=== PATIENT | female | born 2000 | race Caucasian/White ===

== ENCOUNTER 2020-05-17 10:10 | Outpatient (REF) | payer BC, SELFPAY ==
--- NOTE | 2020-05-17 09:30 | PAPFT_PTH ---
PATIENT: FREDDY CHOW LOC: [facility] U#:[id number] AGE/SX: 20/F ROOM: RE05/17/[address]: Thalia Obrien NP : 2000 BED: DIS: 05/17/2020 SPEC #: [id number] RECD: 05/17/20 12:46 STATUS: SHAUNA REQ #: [id number] LOLY: 05/17/20 09:[address]: Thalia Obrien NP DEPT: [facility] Cytology RECD BY: Aurora Gamez ENTERED: 05/17/20 12:46 SP TYPE: PAPFT OTHR DR: Satya Frey MD Tissues: 1 - CX/ENDOCX FOR PAP SMEARS Procedures: PAP THIN PREP/[facility] Screening Comments: [id number] (CHLAMYDIA/GC)
[2020-05-18 18:16] LABS: Chlamydia Result Negative (Negative); GC Result Negative (Negative)
== END 2020-05-17 10:30 ==
LOC: LBN 10:10
PROVIDERS: PCP Pediatrics; Visit Provider Nurse Practitioner Women's Health
DX: Z12.4 Encounter for screening for malignant neoplasm of cervix (principal); Z11.3 Encounter for screening for infections with a predominantly sexual mode of transmission; Z97.5 Presence of (intrauterine) contraceptive device; Z11.51 Encounter for screening for human papillomavirus (HPV)
CPT/HCPCS: 87491; 87591; 88142

== ENCOUNTER 2020-12-26 10:35 | Outpatient (REF) | payer BC, SELFPAY ==
[2020-12-28 07:49] LABS: Chlamydia Result Negative (Negative); GC Result Negative (Negative)
== END 2020-12-26 10:36 | disposition home or self-care (01) ==
LOC: LBN 10:35
PROVIDERS: PCP Pediatrics; Visit Provider Nurse Practitioner Women's Health
DX: Z11.3 Encounter for screening for infections with a predominantly sexual mode of transmission (principal)
CPT/HCPCS: 87491; 87591